=== PATIENT | female | born 1965 | race Caucasian/White ===

== ENCOUNTER 2020-06-23 17:55 | Emergency (ER) | payer OTHER ==
[~2020-06-23] VITALS: Ht 165.1 cm; Wt 139.3 kg
[2020-06-23] MEDS ORDERED: MORPHINE SULFATE INJ 4 MG/ML INJ 1ML IM STA (18:09)
[2020-06-23] MEDS: ACETAMINOPHEN 325 MG TAB PO ONE ×2 (19:01→19:09)
== END 2020-06-23 19:33 | disposition home or self-care (01) ==
LOC: ER 18:33
DX: Z47.89 Encounter for other orthopedic aftercare (principal)
CPT/HCPCS: 99283

== ENCOUNTER → 2020-09-12 | Day surgery (SDC) | payer OTHER ==
[~2020-09-12] VITALS: Ht 162.6 cm; Wt 142.4 kg
[~2020-09-12] MED LIST: BENZOCAINE 20% SPR 60 ML CAN ONE; BUSPIRONE HCL5 MG PO; CETIRIZINE HCL10 MG PO; LAMOTRIGINE150 MG PO; LEVOTHYROXINE75 MCG PO; LEXAPRO20 MG PO; LIDOCAINE HCL 2% LOCAL INJ 5 ML SDV VIAL INJ ONE; MIDAZOLAM HCL 2 MG/2 ML VIAL ONE; OMEPRAZOLE40 MG PO; PROPOFOL IV EMULSION 10 MG/ML 20 ML VIAL ONE; PROVENTIL HFA6.7 GM INH; SODIUM CHLORIDE 0.9% 1000ML 1,000 ML ONE; SPIRONOLACTONE25 MG PO; dulera INH
[2020-09-12 13:34] VITALS: BP 138/77
[2020-09-12 13:35] VITALS: BP 140/87
[2020-09-12 13:40] VITALS: BP 120/81
[2020-09-12 13:45] VITALS: BP 140/70
[2020-09-12 14:00] VITALS: BP 140/77
[2020-09-12 14:15] VITALS: BP 141/77
== END | disposition home or self-care (01) ==
LOC: CATH LAB 11:26
PROVIDERS: ATTEND Internal Medicine Interventional Cardiology
DX: Q21.1 Atrial septal defect (principal); I20.8 Other forms of angina pectoris; Z13.6 Encounter for screening for cardiovascular disorders; J45.909 Unspecified asthma, uncomplicated; Z88.8 Allergy status to other drugs, medicaments and biological substances; Z68.43 Body mass index [BMI] 50.0-59.9, adult; Z82.49 Family history of ischemic heart disease and other diseases of the circulatory system
CPT/HCPCS: 36415; 82948; 93312; 93320; 93325; J2001; J2250; J2704; J7030; 93307

== ENCOUNTER 2020-12-11 16:00 | Emergency (ER) | payer BC, OTHER ==
[~2020-12-11] VITALS: Ht 160 cm; Wt 137.4 kg
[~2020-12-11 16:00] MED LIST changes: -BENZOCAINE 20% SPR 60 ML CAN ONE; -LIDOCAINE HCL 2% LOCAL INJ 5 ML SDV VIAL INJ ONE; -MIDAZOLAM HCL 2 MG/2 ML VIAL ONE; -PROPOFOL IV EMULSION 10 MG/ML 20 ML VIAL ONE; -SODIUM CHLORIDE 0.9% 1000ML 1,000 ML ONE
[2020-12-11] MEDS ORDERED: BAMLANIVIMAB 700 MG/20 ML VIAL IV ONE (17:15)
[2020-12-11] MEDS ORDERED: BAMLANIVIMAB 700 MG in SODIUM CHLORIDE 0.9% 250ML 250 ML IV ONE (17:45)
[2020-12-11] MEDS ORDERED: ACETAMINOPHEN 325 MG TAB PO NR (18:15)
[2020-12-11] MEDS ORDERED: GUAIFENESIN 200 MG/10 ML UDC PO NR (19:51)
[2020-12-11] MEDS ORDERED: DECADRON4 M1 PO (20:38)
[2020-12-11 22:37] VITALS: BP 102/65
== END 2020-12-11 22:42 | disposition home or self-care (01) ==
LOC: ER 16:16
DX: U07.1 COVID-19 (principal); R50.9 Fever, unspecified; R06.02 Shortness of breath; E03.9 Hypothyroidism, unspecified; F41.9 Anxiety disorder, unspecified; K21.9 Gastro-esophageal reflux disease without esophagitis; F31.9 Bipolar disorder, unspecified
CPT/HCPCS: 99284; J7050